=== PATIENT | female | born 1990 | race Two or more races ===

== ENCOUNTER 2022-12-04 19:11 | Emergency (ER) | payer MEDICAID ==
[~2022-12-04] VITALS: Ht 160 cm; Wt 72.6 kg
[2022-12-04] MEDS ORDERED: IBUPROFEN 400 MG TABLET PO ONE (20:00)
[2022-12-04] MEDS ORDERED: ACETAMINOPHEN ES 500 MG TABLET PO ONE (20:00)
[2022-12-04] MEDS ORDERED: IBUPROFEN 400 MG TABLET ONE (20:04)
[2022-12-04] MEDS ORDERED: ACETAMINOPHEN ES 500 MG TABLET ONE (20:04)
[2022-12-04 21:45] VITALS: BP 117/67; TEMP 99.3; O2SAT 100
== END 2022-12-04 21:45 | disposition home or self-care (01) ==
LOC: ER 19:22
DX: S80.212A Abrasion, left knee, initial encounter (principal); S80.211A Abrasion, right knee, initial encounter; J45.909 Unspecified asthma, uncomplicated; E11.9 Type 2 diabetes mellitus without complications; V29.99XA Rider (driver) (passenger) of other motorcycle injured in unspecified traffic accident, initial encounter; Y93.89 Activity, other specified; Y92.481 Parking lot as the place of occurrence of the external cause; Y99.8 Other external cause status
CPT/HCPCS: 70450-TC; 71250-TC; 72125-TC; 73502; 73552